=== PATIENT | female | born 1970 | race Caucasian/White ===

== ENCOUNTER 2021-07-03 08:56 | Emergency (ER) | payer OTHER, SELFPAY ==
[2021-07-03 09:03] VITALS: BP 120/88; PULSE 105; RESP 16; TEMP 36.8; O2SAT 99
--- NOTE | 2021-07-03 09:16 | ED.URI ---
HPI - URI/Sore Throat General Chief Complaint: Upper Respiratory Infection Stated Complaint: hard to swallow Time Seen by Provider: 07/03/21 09:16 Source: patient History of Present Illness HPI Narrative: PATIENT PRESENTS WITH THROAT PAIN. PATIENT PAIN IS MORE ON THE LEFT AND FEELS IF HER LYMPH NODES ARE SWOLLEN. NO TROUBLE SWALLOWING AND NO DROOLING. HX OF STREP THROAT. DENIES ANY OTHER COMPLAINTS OF . Related Data Home Medications Medication Instructions Recorded Confirmed sumatriptan succinate 50 mg PO DAILY PRN 07/03/21 07/03/21 Allergies Allergy/AdvReac Type Severity Reaction Status Date / Time egg Allergy Severe Anaphylaxis Unverified 07/03/21 09:18 Penicillins Allergy Severe Dyspnea / Unverified 07/03/21 09:18 SOB flu vaccination Allergy Severe Anaphylaxis Uncoded 07/03/21 09:18 MMR vaccination Allergy Severe Anaphylaxis Uncoded 07/03/21 09:18 Review of Systems Review of Systems: CONSTITUTIONAL: Denies fever, chills, or sweats. EYES: Denies visual changes, redness, or discharge. ENT: Denies rhinorrhea, congestion, sore throat, or otalgia. CARDIOVASCULAR: Denies chest pain, palpitations, or edema. RESPIRATORY: Denies cough or dyspnea. GASTROINTESTINAL: Denies abdominal pain, nausea, vomiting, or diarrhea. GENITOURINARY: Denies dysuria or hematuria. SKIN: Denies rash or itching. MUSCULOSKELETAL: Denies back pain, joint pain, or myalgia. NEUROLOGIC: Denies headache, numbness, or weakness. PSYCHIATRIC: Denies anxiety or depression. PMFSH Comments At time of signature, agree with nursing past medical, surgical, social and family history. There is no relevant family history pertinent to the presenting complaint Exam Narrative: GENERAL: Well-appearing, well-nourished, and in no acute distress. HEAD: Normocephalic, atraumatic. EYES: PERRLA and EOMI. ENT: Nares clear, no rhinorrhea or epistaxis. Mucous membranes moist. Mild pharyngeal erythremia no exudate no trismus no drooling can open mouth fully NECK: Supple. CHEST: Clear to auscultation. No respiratory distress. HEART: Regular rate and rhythm. No murmur heard. Normal peripheral pulses. ABDOMEN: Soft, nontender, nondistended, normal active bowel sounds. EXTREMITIES: Normal range of motion. No edema. SKIN: Warm, dry, no rash. NEURO: No focal deficits. Alert and oriented x3. Mindy Coma Scale Eye Opening: Spontaneous 4 [place]y Coma Scale Motor: Obeys Commands 6 [place] Coma Scale Verbal: Oriented 5 Mindy Coma Scale Total 15 Course Course Level of Care: Express Care Visit Vital Signs Vital signs: Vital Signs Temperature 36.8 C 07/03/21 09:03 Pulse Rate 105 H 07/03/21 09:03 Respiratory Rate 16 07/03/21 09:03 Blood Pressure 120/88 07/03/21 09:03 Pulse Oximetry 99 07/03/21 09:03 Temperature 36.8 C 07/03/21 09:03 Pulse Rate 105 H 07/03/21 09:03 Respiratory Rate 16 07/03/21 09:03 Blood Pressure 120/88 07/03/21 09:03 Pulse Oximetry 99 07/03/21 09:03 Critical dx considered and discussed with pt. Educated patient on red flag s/s and to go to ED if s/s occur. Discussed with pt when to return to Express Care or primary care provider. Pt gave verbal undertstanding, all questions were answered, and pt was agreeable to plan MDM - URI/Sore Throat Differential Diagnosis Differential diagnosis: Likely upper respiratory infection, croup, otitis media, sinusitis, viral infection, bronchitis, influenza and pharyngitis Lab Data Lab results narrative: Positive strep test Critical Care Time Critical Care Time Critical Care Time: No Discharge Plan Discharge Clinical Impression: Pharyngitis Patient Disposition: Home, Self-Care Condition: Stable Instructions: Antibiotic Form, Strep Throat (DC) Additional Instructions: Increase fluids especially juices and water [id number] cough and cold medicine of your choice for your symptoms Salt water gargles, throat lozenges or throat sprays as desired change
== END 2021-07-03 09:34 | disposition home or self-care (01) ==
PROVIDERS: Emergency Provider Nurse Practitioner Family; PCP Internal Medicine
DX: J02.9 Acute pharyngitis, unspecified (principal)
CPT/HCPCS: 87880; 99203; G0463

== ENCOUNTER 2023-03-03 19:13 | Emergency (ER) | payer OTHER, SELFPAY ==
[2023-03-03 19:24] VITALS: BP 124/78; PULSE 107; RESP 16; TEMP 36.5; O2SAT 99
--- NOTE | 2023-03-03 19:28 | ED.EAR ---
HPI - Ear Problem General Chief complaint: Ear Stated complaint: something in left ear Time Seen by Provider: 03/03/23 19:28 Source: patient, RN notes reviewed and old records reviewed Mode of arrival: ambulatory Limitations: no limitations History of Present Illness HPI Narrative: 52 year old female presents to [facility] care with complaints of bug being in her left ear, Patient reports there was a bug that she thinks went in her ear and then never came out,. Patient reports that she just can't hear out of her ear very well. Patient does have some fluid noted in her ears with dull light reflux. Patient reports that she has had problems with her ears in the past and has had a tube in her right ear before. patient has not taken any OTC medications for her symptoms. MD Complaint: ear pain and foreign body (felt like something in ear) Location: left ear Discharge from ear: Reports no Associated symptoms ear: other (feels like a bug in ear) Treatment prior to arrival: none Related Data Home Medications Medication Instructions Recorded Confirmed amitriptyline 25 mg tablet mg 03/03/23 apixaban 5 mg tablet (Eliquis) mg 03/03/23 lisinopril 10 mg tablet mg 03/03/23 Allergies Allergy/AdvReac Type Severity Reaction Status Date / Time egg Allergy Severe Anaphylaxis Unverified 07/03/21 09:18 Penicillins Allergy Severe Dyspnea / Unverified 07/03/21 09:18 SOB flu vaccination Allergy Severe Anaphylaxis Uncoded 07/03/21 09:18 MMR vaccination Allergy Severe Anaphylaxis Uncoded 07/03/21 09:18 Review of Systems Review of Systems: CONSTITUTIONAL: Denies malaise, chills, sweats, or fever. EYES: Denies visual changes, redness, or discharge. ENT: Reports rhinorrhea, congestion,no sinus pain, bilateral otalgia and no sore throat. CARDIOVASCULAR: Denies chest pain, palpitations, or edema. RESPIRATORY: Reports no cough.? Denies dyspnea. GASTROINTESTINAL: Denies abdominal pain, nausea, vomiting, diarrhea SKIN: Denies rash or itching. MUSCULOSKELETAL: Denies myalgia. NEUROLOGIC: Denies headache. All systems reviewed & are unremarkable except as noted in HPI and below PMFSH Past Medical History Medical History (Updated 03/05/23 @ 19:57 by Jennifer Pool NP) Gestational diabetes Hypertension Multiple environmental allergies Surgical History Surgical History (Updated 03/03/23 @ 19:48 by Jennifer Pool NP) History of placement of ear tubes Family History Family History (Updated 03/05/23 @ 19:58 by Jennifer Pool NP) Mother Asthma Father Lung cancer COPD (chronic obstructive pulmonary disease) Social History Social History (Updated 03/05/23 @ 20:00 by Jennifer Pool NP) Smoking packs per day: 0.25 Smoking cigarettes per day: 5.0 Years smoked: 16 Smoking pack-years: 4.00 Smoking status: Current every day smoker Alcohol intake: current Alcohol use details: social Substance use type: does not use Living arrangements: with family Gender identity (if verbalized by the patient): Female Comments At time of signature, agree with nursing past medical, surgical, social and family history. There is no relevant family history pertinent to the presenting complaint Exam Narrative: GENERAL: Well-appearing, well-nourished, and in no acute distress. HEAD: Normocephalic EYES: PERRLA, conjunctivae clear ENT: Nares clear, turbinates edematous and erythematous, clear discharge. Mucous membranes moist. TM pearly yeager with dull light reflex bilaterally; no foreign body observed,no tragal tenderness. Oropharynx erythematous without lesions. Tonsils not enlarged and without exudate, no drooling, no hoarseness, no trismus, uvula midline. NECK: Supple. No lymphadenopathy CHEST: Clear to auscultation, breath sounds equal. No wheezing, rhonchi, rales, or stridor. No respiratory distress, speaks in full sentences.SAO2 99% on room air HEART: Regular rate and rhythm. No murmur he
== END 2023-03-03 19:46 | disposition home or self-care (01) ==
PROVIDERS: Emergency Provider Registered Nurse; PCP Internal Medicine
DX: H69.93 Unspecified Eustachian tube disorder, bilateral (principal); F17.210 Nicotine dependence, cigarettes, uncomplicated; I10 Essential (primary) hypertension
CPT/HCPCS: 99213; G0463

== ENCOUNTER 2024-06-29 09:08 | Emergency (ER) | payer OTHER, SELFPAY ==
--- OUTSIDE RECORDS SUMMARY | 2024-06-29 09:11 | XMS_ITS | Clinical Summary ---
Author Organization [facility] Address [address] [place] [address] Care Team Providers Care Tuckpointer Cleaner Caulker Name Role Phone Enzo Bertrand MD Primary Care Provider [phone]- [phone] Allergies Active Allergy Reactions Criticality Noted Date Comments Egg Derived Anaphylaxis High 07/18/2016 Other Hives Medium 07/18/2016 oranges Penicillins Other (See comments) Low 07/18/2016 Chest pain Prochlorperazine Unknown Medications ondansetron (ZOFRAN) 4 mg tablet Take 1-2 tablets by mouth every 8 hours as needed for nausea or vomitting 20 tablet 7 Active ascorbic acid (VITAMIN C) 500 mg tablet,chewable Take 1 tablet by mouth 2 times daily until finished 60 tablet/chew tab 7 Active oxyCODONE-aceta minophen (PERCOCET) 5-325 mg per tabletIndicatio ns:Pain 0 7 Active sulfamethoxazol e-trimethoprim (BACTRIM,SEPTRA ) 800-160 mg per tablet 0 7 Active amitriptyline (ELAVIL) 25 mg tablet Take 25 mg by mouth. 6 Active triamcinolone acetonide 0.025 % lotion Apply topically. Active SUMAtriptan (IMITREX) 50 mg tabletIndicatio ns:Migraine Take 50 mg by mouth. 7 Active sulfamethoxazol e-trimethoprim (BACTRIM,SEPTRA ) 800-160 mg per tablet Take 1 tablet by mouth 2 (two) times a day. 14 tablet 7 Active HYDROcodone-nikolai taminophen (NORCO) 5-325 mg per tabletIndicatio ns:Pain Take 1 tablets by mouth every 8 hours as needed for pain 33 tablet 7 Active Active Problems Problem Noted Date Diagnosed Date Closed fracture of radius 01/13/2017 Surgical History Surgery Date Site/Laterality Comments ELBOW SURGERY HAND SURGERY WRIST FRACTURE SURGERY Medical History Medical History Date Comments Hypotension Asthma Migraines Peripheral neuropathy Family History Medical History Relation Name Comments Arthritis Other Cancer Other Relation Name Status Comments Other Social History Tobacco Use Types Packs/Day Years Used Date Smoking Tobacco: Every Day Smokeless Tobacco: Never Alcohol Use Standard Drinks/Week Comments Yes 0 (1 standard drink = 0.6 oz pur e alcohol) AUDIT-C Answer Date Recorded Q1: How often do you have a drink containing alc ohol? 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 Gender Identity Not on file Sexual Orientation Not on file Obstetrics History Last Filed Vital Signs Vital Sign Reading Time Taken Comments Blood Pressure 127/82 10/19/2020 9:04 AM CDT Pulse 90 10/19/2020 9:04 AM CDT Temperature - - Respiratory Rate - - Oxygen Saturation - - Inhaled Oxygen Concentration - - Weight 41 kg (90 lb 6.4 oz) 10/19/2020 9:04 AM C DT Height 152.4 cm (5') 10/19/2020 9:04 AM CDT Body Mass Index 17.66 10/19/2020 9:04 AM CDT Plan of Treatment Health Maintenance Due Date Last Done Comments Cervical Cancer Screening 1971 Colon Cancer Screening-Colonoscopy 1971 Depression Screening 1971 Hepatitis C Screening 1971 Pneumococcal vaccine <65 (1 of 2 - PCV) 1977 Hepatitis B Screening 1989 Regular Well Visit/Exam 18-64 1989 Breast Cancer Screening-Mammogram 08/07/2013 013 Zoster Vaccine (1 of 2) 2021 Influenza Vaccine (#1) 2024 DTaP/Tdap/Td Vaccine (2 - Td or Tdap) 04/23/202503/2015 Procedures Procedure Name Priority Date/Time Associated Diagnosis Comments DIGITAL MAMMOGRAPHY Routine 08/07/2012 1 :54 PM CDT from Last 3 Months or Most Recently Relevant to Health Maintenance Results * DIGITAL MAMMOGRAPHY (08/07/2012 1:54 PM CDT) Anatomical Region Laterality Modality Breast Mammography 08/07/2012 1:54 PM CDT Narrative 08/07/2012 3:19 PM CDT Mammogram Performed by: [facility] Acc#: [id number] DATE OF EXAM: Aug 07 2012 CLINICAL HISTORY: Routine screening. RESULT: Two views of each breast obtained, compared with 03/11/11. Moderately dense fibroglandular pattern bilaterally. No dominant mass is demonstrated. No suspicious clusters of microcalcifications are evident. Similar appearance to prior study. Digital technology was employed plus computer-aided detection software (R2) was utilized in interpretation of these images. This facility utilizes a reminder system to notify patients of yearly mammograms. IMPRESSION: 1. NO BREAST NEOPLASM IDENTIFIED. ANNUAL MAMMOGRAPHIC FOLLOW UP RECOMMENDED. BI-RADS CATEGORY 1 NEGATIVE EXAM. Interpreting Physician: JELLY LEYVA M.D. Read on: Aug 07 2012 1:56P Transcribed by: isa On: Aug 07 2012 2:59P Approved Electronically by: JELLY LEYVA M.D. on: Aug 07 2012 3:19P Ordering DR: DR ENZO BERTRAND Attending DR: DR ENZO BERTRAND Procedure Note Provider, MD Willis - 09/07/2016 Mammogram Performed by: [facility] Acc#: [id number] DATE OF EXAM: Aug 07 2012 CLINICAL HISTORY: Routine screening. RESULT: Two views of each breast obtained, compared with 03/11/11. Moderatelydense fibroglandular pattern bilaterally. No dominant mass isdemonstrated. No suspicious clusters of microcalcifications are evident.Similar appearance to prior study. Digital technology was employed pluscomputer-aided detection software (R2) was utilized in interpretation ofthese images. This facility utilizes a reminder system to notify patientsof yearly mammograms. IMPRESSION: 1. NO BREAST NEOPLASM IDENTIFIED. ANNUAL MAMMOGRAPHIC FOLLOW UPRECOMMENDED. BI- RADS CATEGORY 1 NEGATIVE EXAM. Interpreting Physician: JELLY LEYVA M.D. Read on: Aug 07 2012 1:56P Transcribed by: isa On: Aug 07 2012 2:59P Approved Electronically by: JELLY LEYVA M.D. on: Aug 07 2012 3:19P Ordering DR: DR ENZO BERTRAND Attending DR: DR ENZO BERTRAND Historical Provider MD [facility] Sonia l Result from Last 3 Months or Most Recently Relevant to Health Maintenance Insurance [facility] Member Subscriber Plan / Payer ( fective 2020-Present) Name:Autumn Sarkar Relation to Subscriber:Self Name:Autumn Sarkar Payer ID:[id number] (NAIC) Group ID:Not on file Type:MEDICAID RISK OTHER Address: [place] [id number] Care Teams Tuckpointer Cleaner Caulker Relationship Specialty Start Date End Date Enzo Bertrand MD PCP - General Internal Medicine 10/19/20
--- OUTSIDE RECORDS SUMMARY | 2024-06-29 09:11 | XMS_ITS | Referral Summary ---
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 Gender Identity Not on file Sexual Orientation Not on file Last Filed Vital Signs Vital Sign Reading [...] 10/19/2020 9:04 AM CDT Plan of Treatment Not on file Procedures Procedure Name Priority Date/Time Associated Diagnosis Comments DIGITAL MAMMOGRAPHY Routine 08/07/2012 1 :54 PM CDT from Last 3 Months or Most Recently Relevant to Health Maintenance Results * DIGITAL MAMMOGRAPHY (08/07/2012 1:54 PM CDT) Anatomical Region Laterality Modality Breast Mammography 08/07/2012 1:54 PM CDT Narrative 08/07/2012 3:19 PM CDT Mammogram Performed by: [facility]IR[facility] Acc#: [id number] DATE OF EXAM: Aug 07 2012 CLINICAL [...] Mammogram Performed by: Screening Mamm [facility] Acc#: [id number] DATE OF EXAM: Aug 07 2012 CLINICAL [...] ENZO BERTRAND Attending DR: DR ENZO BERTRAND us Historical Provider MD [facility] Sonia l Result from Last 3 Months or Most Recently Relevant to Health Maintenance Insurance [facility] Care Teams Door Assembler Relationship Specialty Start Date End Date Enzo Bertrand MD PCP - General Internal Medicine 10/19/20
--- OUTSIDE RECORDS SUMMARY | 2024-06-29 09:11 | XMS_ITS | Referral Summary ---
Author Organization [facility] Address [address] [place] [address] Care Team Providers Care Inspector Tubes Name Role Phone Edwina Bertrand MD Primary Care Provider Unavailabl e Source Comments [facility],non-owned Affiliates and Associated Physician Practices is amultiple site organization consisting of ambulatory clinics and hospital sitesin [place], [place], [place] and [place]. This disclosure is being madepursuant to the Care Everywhere program and may not contain all information available regarding this patient. Last updated 18.[facility] Encounters Date Type Department Care Team Description 04/24/2024 Orders Only [facility] - Surgery [address] [place] [address], [address] [id number] Adelina Mathias, AIRCRAFT PNEUDRAULIC SYSTEMS MECHANIC-FAMILY SUPPORT COORDINATOR from Last 3 Months Allergies Active Allergy Reactions Criticality Noted Date Comments Amoxicillin Urticaria Medium 04/18/2022 Albumin Anaphylaxis High 04/07/2022 Medications * Be aware that medications may not be up to date on this document. Alwaysverify current medications with the patient. 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 Never 04/04/2022 Q2: How many drinks containi ng alcohol do you have on a typical day when you are drinking? Patient does not drink Q3: How often do you have si x or more drinks on one occasion? Never 04/04/2022 Hunger Vital Sign Answer Date Recorded Within the past 12 months, y ou worried that your food would run out before you got the money to buy more. Never true 04/19/20 Within the past 12 months, t he food you bought just didn't last and you didn't have money to get more. Never true 04/19/2022 Sex and Gender Information Value Date Recorded Sex Assigned at Not on file Gender Identity Not on file Sexual Orientation Not on file Last Filed Vital Signs Vital Sign Reading Time Taken Comments Blood Pressure 109/73 04/19/2022 8:30 AM CORPORATE COMMUNICATIONS INTERN Pulse 86 04/19/2022 8:30 AM CORPORATE COMMUNICATIONS INTERN Temperature 36.9 C (98.4 F) 04/19/2022 8:30 AM CORPORATE COMMUNICATIONS INTERN Respiratory Rate 19 04/19/2022 8:30 AM CORPORATE COMMUNICATIONS INTERN Oxygen Saturation 97% 04/19/2022 8:30 AM CORPORATE COMMUNICATIONS INTERN Inhaled Oxygen Concentration - - Weight 39.9 kg (88 lb) 07/19/2023 1:46 PM CORPORATE COMMUNICATIONS INTERN Height 152.4 cm (5') 07/19/2023 1:46 PM CORPORATE COMMUNICATIONS INTERN Body Mass Index 17.19 07/19/2023 1:46 PM CORPORATE COMMUNICATIONS INTERN Plan of Treatment Upcoming Encounters Date Type Department Care Team (Late st Contact Info) Description 07/24/2024 1:00 PM CDT Appointment [facility] Services [address] [place] [address], [address] [place] [address] 07/24/2024 1:30 PM CDT Office Visit [facility] - Surgery [address] [place] [address], [address] [place] [id number] [place] [id number] [address] [id number] Medical Devices Implanted Type Area Toddler Teacher Device Identifier Shelf Expiration Date Model / Serial / Lot Stent Eprsth Sprfc Fem Art Ilium 5cm 7mm - [id number] Implanted:Qty: 1 on 04/18/2022 by Donal Patel MD at [facility] 11/30/2024 [id number] / [id number] / Advance Directives * Full Code (Latest Code Status on File) Date Activated Date Inactivated Comments 04/18/2022 3:54 PM 04/19/2022 5:47 PM * Full Code Date Activated Date Inactivated Comments 04/18/2022 3:37 PM 04/18/2022 3:54 PM * Full Code Date Activated Date Inactivated Comments 04/05/2022 1:35 AM 04/07/2022 2:52 PM Care Teams Inspector Tubes Relationship Specialty Start Date End Date Edwina Bertrand MD [address] [place] [id number] PCP - General Obstetrics and Gynecology 04/04/22
--- OUTSIDE RECORDS SUMMARY | 2024-06-29 09:11 | XMS_ITS | Clinical Summary ---
Author Organization [facility] Address [address] [place] [address] Phone Care Team Providers Care Feltmaker And Weigher Name Role Phone Wil Bertrand MD Primary Care Provider Allergies Active Allergy Reactions Criticality Noted Date Comments Albumin Human Anaphylaxis High 04/07/2022 Egg-Derived Products Anaphylaxis 07/18/2016 Other Hives 07/18/2016 oranges Penicillins Other (see Comments) 07/18/2016 Chest pain Prochlorperazine Unknown 07/16/2020 Medications fluticasone (FLONASE) 50 MCG/ACT Suspension 1 Mead by Nasal route 2 times daily. Use in each nostril as directed. 16 g 3 09/21/2021 Active Eliquis 5 MG Tablet Take 5 mg by mouth 2 times daily. 12/19/2022 Active triamcinolone (KENALOG) 0.025 % Cream Apply to rash areas bid prn for flare up 80 g 01/25/2023 Active famotidine (PEPCID) 20 MG Tablet Take 20 mg by mouth daily. Active SUMAtriptan (IMITREX) 50 MG Tablet Take 1 Tablet by mouth once as needed for Migraine for up to 27 doses. Use as directed. May repeat dose in 2 hours if headache recurs. 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 Continue follow-up with vascular surgeon Cervical spinal stenosis 12/22/2021 Tobacco use 03/05/2020 Migraine without aura and wi thout status migrainosus, not intractable 03/05/2020 Carpal tunnel syndrome, right 07/19/2016 Encounters Date Type Department Care Team Description 04/22/2024 Refill [facility] - Internal Medicine - [place] [address] [place] [address] Wil Bertrand MD Medication Refill from Last 3 Months Immunizations Immunization Administration Dates Next Due TDAP Vaccine 04/23/2015 Family History Medical History Relation Name Comments Cancer Father Asthma Mother No Known Problems Sister 1 Cancer Sister 2 Relation Name Status Comments Father Mother Alive Sister 1 Alive Sister 2 Social History Tobacco Use Types Packs/Day Years Used Date Smoking Tobacco: Every Day Cigarettes 0.5 18.9 Started: 07/18/2005 Passive Smoke Exposure: Current Smokeless Tobacco: Never Tobacco Cessation:Ready to Q uit: No; Counseling Given: No Alcohol Use Standard Drinks/Week Comments No 0 (1 standard drink = 0.6 oz pur e alcohol) [facility] Utilities Answer Date Recorded In the past 12 months has th e [employer], gas, oil, or water [employer] threatened to shut off services in your home? No 07/31/2023 Social Connection and Isolat ion Panel [NHANES] Answer Date Recorded In a typical week, how many times do you talk on the phone with family, friends, or neighbors? More than three times a week 07/31/2023 How often do you get togethe r with friends or relatives? More than three times a week 07/31/2023 How often do you attend [facility] or yazidism services? Never 07/31/2023 Do you belong to any clubs o r organizations such as sabianism groups, unions, fraternal or athletic groups, or school groups? No 07/31/2023 How often do you attend meet ings of the clubs or organizations you belong to? Never 07/31/2023 Are you , , di vorced, , never , or living with a partner? Never 07/31/2023 AUDIT-C Answer Date Recorded Q1: How often do you have a drink containing alcohol? Never 07/31/2023 Q2: How many drinks containi ng alcohol do you have on a typical day when you are drinking? Patient does not drink Q3: How often do you have si x or more drinks on one occasion? Never 07/31/2023 Overall Financial Resource Strain (CARDIA) Answe r Date Recorded How hard is it for you to pa y for the very basics like food, housing, medical care, and heating? Not hard at all 07/31/2023 PHQ-2 Answer Date Recorded Total Score - Questions 1-9 0 07/12 [facility] - Occupational Stress Questionnaire Answer Date Recorded Do you feel stress - tense, restless, nervous, or anxious, or unable to sleep at night because your mind is troubled all the time - these days? Not at all 07/31/2023 Exercise Vital Sign Answer Date Recorde d On average, how many days pe r week do you engage in moderate to strenuous exercise (like a brisk walk)? 0 days 07/31/2023 On average, how many minutes do you engage in exercise at this level? 0 min 07/31/2023 Hunger Vital Sign Answer Date Recorded Within the past 12 months, y ou worried that your food would run out before you got the money to buy more. Never true 07/31/19 24 Within the past 12 months, t he food you bought just didn't last and you didn't have money to get more. Never true 07/31/2023 PRAPARE - Transportation Answer Date Re corded In the past 12 months, has l ack of transportation kept you from medical appointments or from getting medications? No 07/12 In the past 12 months, has l ack of transportation kept you from meetings, work, or from getting things needed for daily living? No 07/31/2023 Housing Stability Vital Sign Answer Wes e Recorded In the last 12 months, was t here a time when you were not able to pay the mortgage or rent on time? No 07/31/2023 In the last 12 months, how many places have you lived? 3 07/31/2023 In the last 12 months, was t here a time when you did not have a steady place to sleep or slept in a retirement (including now)? No 07/31/2023 Sexually Active Control Partners Comments Yes Comments No Sex and Gender Information Value Date Recorded Sex Assigned at Not on file Legal Sex Female 11:52 PM CDT Gender Identity Not on file Sexual Orientation Not on file Last Filed Vital Signs Vital Sign Reading Time Taken Comments Blood Pressure 130/74 07/31/2023 9:23 AM CDT Pulse 94 07/31/2023 9:23 AM CDT Temperature 37.1 C (98.7 F) 07/31/2023 9:23 AM CDT Respiratory Rate 16 09/08/2022 1:16 PM CDT Oxygen Saturation 95% 07/31/2023 9:23 AM CDT Inhaled Oxygen Concentration - - Weight 39.5 kg (87 lb) 07/31/2023 9:23 AM CDT Height 152.4 cm (5') 07/31/2023 9:23 AM CDT Body Mass Index 16.99 07/31/2023 9:23 AM CDT Plan of Treatment Health Maintenance Due Date Last Done Comments Hepatitis C Virus (HCV) Screening 1971 Hepatitis B Immunization (1 of 3 - 19+ 3-dose series) 1990 Pneumococcal Immunization (5 0+ years) (1 of 2 - PCV) 1990 Cologuard 2021 Immunochemical Fecal Occult Blood 2021 SARS-COV-2 Immunization ( - season) 2024 Mammogram 12/27/2024 12/27/2022, 08/02/2021 Td Immunization Every 10 Yea rs (Adults With 1 Tdap) 04/23/2025 04/23/2015 Pap Smear 09/08/2025 09/08/2022 Cervical Cancer Screening (CCS) 09/09/2027 HPV/Cotest 09/09/2027 09/08/2022 Colonoscopy 10/06/2031 10/05/2021 Colorectal Cancer Screening 10/06/2031 Respiratory Syncytial Virus (RSV) Immunization (Adult) (1 - 1-dose 75+ series) 2046 10/05/2021 DTaP/Tdap/Td Immunization Discontinued 04/23/2015 Discussion re Starting/Frequency of Mammograms Discontinued 12/27/2022, 08/02/2021 Influenza Immunization Discontinued Meningococcal Immunization (ACWY) Aged Out No longer eligible based on patient's age to complete this topic Rotavirus Immunization Aged Out No lo nger eligible based on patient's age to complete this topic Zoster Immunization Discontinued Goals Goal Patient Goal Type Associated Problems Recent Progress Patient-Stated? Author Chronic Disease Management Chronic Disease Management Сергей Herrera, RN Note: To effectively check in with [facility] Remote Patient Monitoring Hypertension program via text on Sunday and at 08:30 am. Procedures Procedure Name Priority Date/Time Associated Diagnosis Comments SARAH SCREENING BILATERAL DIGITAL W CAD W SUDHA Routine 12/27/2022 11:22 AM CDT Visit for screening mammogram HUMAN PAPILLOMA VIRUS (HPV) Routine 09/08/2022 1:54 PM CDT Screening for cervical cancer PATHOLOGY CYTOLOGY CARD ROOM MANAGER Routine 09/08/2022 1:54 PM CDT Screening for cervical cancer from Last 3 Months or Most Recently Relevant to Health Maintenance Results * SARAH SCREENING BILATERAL DIGITAL W CAD W SUDHA (12/27/2022 11:22 AM CDT) Anatomical Region Laterality Modality breast Bilateral Mammography 12/27/2022 11:2 4 AM CDT Narrative 12/27/2022 3:40 PM CDT - SARAH SCREENING BILATERAL DIGITAL W CAD W SUDHA BILATERAL DIGITAL SCREENING MAMMOGRAM 3D/2D WITH CAD WITH MEDIOLATERAL OBLIQUE CRANIOCAUDAL: 12/27/2022 The study was acquired using digital technology and interpreted from soft copy. Current study was also evaluated with ICAD version 7.2. 2D digital mammographic views, as well as 3D digital tomosynthesis were performed in the CC and MLO projections. CLINICAL: Routine screening. Patient has no complaints. No personal history of cancer. No family history of breast cancer. COMPARISONS: Comparison is made to exam dated: 08/02/[address] [facility]. BREAST TISSUE:The tissue of both breasts is heterogeneously dense. This may lower the sensitivity of mammography. FINDINGS: There are benign calcifications in the left breast. No significant masses, calcifications, or other findings are seen in either breast. There has been no significant interval change. IMPRESSION: BI-RAD 2 BENIGN There is no mammographic evidence of malignancy. A 1 year screening mammogram is recommended. A letter will be sent to the patient with these results. The patient will be entered into a reminder system with a target due date of 1 year for her next screening exam. Electronically signed by: Cheryl galindo/chula:12/27/2022 14:51:23 Watch Case Polisher(s): RT Corky(R)(M), [facility] letter sent: Normal Exam Reading location: [facility] BI-RADS: 2 Benign Procedure Note Cheryl Schroeder MD - 12/27/2022 - SARAH SCREENING BILATERAL DIGITAL W CAD W SUDHA BILATERAL DIGITAL SCREENING MAMMOGRAM 3D/2D WITH CAD WITH MEDIOLATERAL OBLIQUE CRANIOCAUDAL: 12/27/2022 The study was acquired using digital technology and interpreted from soft copy. Current study was also evaluated with ICAD version 7.2. 2D digital mammographic views, as well as 3D digital tomosynthesis were performed in the CC and MLO projections. CLINICAL: Routine screening. Patient has no complaints. No personal history of cancer. No family history of breast cancer. COMPARISONS: Comparison is made to exam dated: 08/02/[address] [facility]. BREAST TISSUE:The tissue of both breasts is heterogeneously dense. This may lower the sensitivity of mammography. FINDINGS: There are benign calcifications in the left breast. No significant masses, calcifications, or other findings are seen in either breast. There has been no significant interval change. IMPRESSION: BI-RAD 2 BENIGN There is no mammographic evidence of malignancy. A 1 year screening mammogram is recommended. A letter will be sent to the patient with these results. The patient will be entered into a reminder system with a target due date of 1 year for her next screening exam. Electronically signed by: Cheryl galindo/chula:12/27/2022 14:51:23 Watch Case Polisher(s): RT Corky(R)(M), [facility] letter sent: Normal Exam Reading location: [facility] BI-RADS: 2 Benign us Wil Bertrand MD IMG MAMMO ORDERABLES Final Result * PATHOLOGY CYTOLOGY CARD ROOM MANAGER (09/08/2022 1:54 PM CDT) SPECIMEN ADEQUACY Satisfactory for evaluation. Endocervical/transf ormation zone component is present. 09/14/2022 10:06 AM CDT [facility] GENERAL CATEGORY NEGATIVE FOR INTRAEPITHELIAL LESIONS OR MALIGNANCY. 09/14/2022 10:06 AM CDT [facility] DESCRIPTIVE DIAGNOSIS Reactive cellular changes are noted. 09/14/2022 10:06 AM CDT [facility] Automated Examination Analysis of this sample has been assisted by an automated imaging and review system ([employer] System, [employer], [place], [place]). This case is further evaluated and finalized by a full decator operator and/or pathologist. 09/14/2022 10:06 AM CDT [facility] Disclaimer The PAP smear is a screening test designed to detect cancerous or precancerous cells of the uterine cervix. It is one of the best means available for detection of cervical cancer but still carries an inherent false-negative rate. The consequences of a false-negative PAP result can be minimized by adhering to current screening guidelines. The following are general guidelines recommended by the ACS, ASCP, ASCCP, and ACOG: PAP testing is recommended every three years for women 21-29, Co-Testing , a PAP test in conjunction with an HPV (Human Papillomavirus) test for women ages 30-65, and no PAP or HPV testing for women under the age of 21 or older than 65 unless clinically indicated. 09/14/2022 10:06 AM CDT [facility] Other (Cervix/Endocerv ix) Non-Phlebotomy Collection / Unknown 09/08/2022 1:54 PM CDT 09/08/2022 1:54 PM CDT us Missy Quintero INSURANCE AND BENEFITS CLERK, STAMPING PRESS OPERATOR PATHOLOGY/CYTOLOGY ORDER JACEY Final Result [facility] [address] [place] [address], * HUMAN PAPILLOMA VIRUS (HPV) (09/08/2022 1:54 PM CDT) HPV OTHER HIGH RISK TYPES, PCR NEGATIVE NEGATIVE 09/11/2022 1:02 PM CDT [facility] Comment: The following Other High Risk types were not detected: 31, 33, 35, 39, 45, 51, 52, 56, 58, 59, 66, and 68. A negative high-risk HPV result does not exclude the possibility of future cytologic HSIL or underlying CIN2-3 or cancer. The presence of PCR inhibitors may cause false negative or invalid results. If concentrations of whole blood in the sample exceed 1.5% (dark red or brown coloration) in PreservCyt solution, there is a likelihood of obtaining a false-negative result. HPV TYPE 16 NEGATIVE NEGATIVE 09/11/2022 1:02 PM CDT [facility] Comment: A negative high-risk HPV result does not exclude the possibility of future cytologic HSIL or underlying CIN2-3 or cancer. The presence of PCR inhibitors may cause false negative or invalid results. If concentrations of whole blood in the sample exceed 1.5% (dark red or brown coloration) in PreservCyt solution, there is a likelihood of obtaining a false-negative result. HPV TYPE 18 NEGATIVE NEGATIVE 09/11/2022 1:02 PM CDT [facility] Comment: A negative high-risk HPV result does not exclude the possibility of future cytologic HSIL or underlying CIN2-3 or cancer. The presence of PCR inhibitors may cause false negative or invalid results. If concentrations of whole blood in the sample exceed 1.5% (dark red or brown coloration) in PreservCyt solution, there is a likelihood of obtaining a false-negative result. HPV ORDER BE USED FOR SCREENING OR DIAGNOSTIC SCREENING 09/11/2022 1:02 PM CDT [facility] Other Non-Phlebotomy Collection / Unknown 09/08/2022 1:54 PM CDT 09/08/2022 1:54 PM CDT Narrative [facility] - 09/11/2022 1:02 PM CDT Performed by Real-Time Polymerase Chain Reaction (PCR) on the [employer] 4800. This assay has been validated for use with post-aliquot samples from the [employer] processor. us Missy Quintero INSURANCE AND BENEFITS CLERK, STAMPING PRESS OPERATOR LAB SEND OUTS Final Re sult [facility] [address] [place] [address], [facility] [address] [place] [address] from Last 3 Months or Most Recently Relevant to Health Maintenance Insurance MEDICAID [place] Advance Directives * Full Code (Latest Code Status on File) Date Activated Date Inactivated Comments 07/19/2016 9:20 AM 07/19/2016 6:06 PM CPR-Full Treat ment: FULL ARREST: Attempt Resuscitation/CPR wit intubation and mechanical ventilation. PRE-ARREST: Use entire range of life support measures to stabilize the patient. Care Teams Feltmaker And Weigher Relationship Specialty Start Date End Date Wil Bertrand MD [address] [place] [address] PCP - General Internal Medicine 07/17/16
--- OUTSIDE RECORDS SUMMARY | 2024-06-29 09:11 | XMS_ITS | Encounter Summary ---
Author Organization [facility] Address [address] [place] [address] Phone Care Team Providers Care Front Desk Lead Name Role Phone Wil Bertrand MD Primary Care Provider [phone] Reason for Visit * Reason Comments Medication Refill Encounter Details Date Type Department Care Team (Late st Contact Info) Description 08/20/2023 Refill [facility] - Internal Medicine - [place] [address] [place] [id number] Wil Bertrand MD [address] [facility] [address] Medication Refill Social History Tobacco Use Types Packs/Day Years Used Date Smoking Tobacco: Every Day Cigarettes 0.5 18.9 Started: 07/18/2005 Passive Smoke Exposure: Current Smokeless Tobacco: Never Alcohol Use Standard Drinks/Week Comments No 0 (1 standard drink = 0.6 oz pur e alcohol) [facility] Utilities Answer Date Recorded In the past 12 months has [employer], gas, oil, or water company threatened to shut off services in your [...] week 07/31/2023 How often do you attend [facility] or congregation services? Never 07/31/2023 Do you belong to any clubs o r organizations such as rastafari groups, unions, fraternal or athletic groups, or [...] Total Score - Questions 1-9 0 07/12 [facility]at [facility] - Occupational Stress [...] place to sleep or slept in a longterm (including now)? No 07/31/2023 Sexually Active Control Partners Comments Yes Comments No Sex and Gender Information Value Date Recorded Sex Assigned at Not on file Legal Sex Female 11:52 PM CDT Gender Identity Not on file Sexual Orientation Not on file documented as of this encounter Miscellaneous Notes * Telephone Encounter - Chela Powell RN - 08/20/2023 8:28 AM CDT Medication(s) refilled and signed per [facility] Chronic Medication Refill Standing Order for Pediatricand Adult Patients. Requested Prescriptions Pending Prescriptions Disp Refills lisinopril (PRINIVIL, ZESTRIL) 10 MG Tablet [Pharmacy Med Name: LISINOPRIL 10MG TABLETS] 30 Tablet 3 Sig: TAKE 1 TABLET BY MOUTH DAILY CHRISTINA Inhibitors Protocol Passed - 08/20/2023 5:48 AM Passed - Serum potassium on record in past 12 months POTASSIUM Date Value Ref Range Status 07/18/2023 4.1 3.5 - 5.1 mmol/L Final Passed - Blood pressure on record in past 12 months Clinician-entered: BP Readings from Last 3 Encounters: 07/31/23 130/74 04/30/23 134/80 01/25/23 110/68 Patient-entered: No data recorded Passed - No positive test in the past 12 months or most recent test was negative Passed - Visit with relevant provider in past 12 months or upcoming 90 days Recent Visits Date Type Provider Dept 07/31/23 Office [facility] [place] 04/30/23 Office Visit Wil Bertrand MD [facility] [place] 01/25/23 [facility] [place] [facility]22 Office Visit Wil Bertrand MD [facility] Showing recent visits within past 365 days and meeting all other requirements Future Appointments Date Type Provider Dept 11/01/23 Appointment Wil Bertrand MD [facility] [place] Showing future appointments within next 90 days and meeting all other requirements Passed - No active on record Passed - GFR on record in past 12 months GFR, EST. NONAFRICAN Date Value Ref Range Status 07/18/2023 >60 >=60 Final documented in this encounter Plan of Treatment Not on file documented as of this encounter Goals Goal Patient Goal Type Associated Problems Recent Progress Patient-Stated? Author Chronic Disease Management Chronic Disease Management Сергей Herrera, RN Note: To effectively check in with [facility] Remote Patient Monitoring Hypertension program via text on Sunday and at 08:30 am. documented as of this encounter Visit Diagnoses Not on filedocumented in this encounter Additional Health Concerns Assessment Noted Time PHQ-9 Depression Total Score: 0 07/31/19 24 9:27 AM CDT documented as of this encounter Care Teams Front Desk Lead Relationship Specialty Start Date End Date Wil Bertrand MD [address] [place] [address] PCP - General Internal Medicine 07/17/16 documented as of this encounter
--- OUTSIDE RECORDS SUMMARY | 2024-06-29 09:11 | XMS_ITS | Clinical Summary ---
Author Organization [facility] [employer] Address [address] [place] [address] Care Team Providers Care Media Analytics Manager Name Role Phone Edwina Bertrand MD Primary Care Provider Unavailabl e Source Comments [facility] [employer],non-owned Affiliates and Associated Physician Practices is amultiple site organization consisting of ambulatory clinics and hospital sitesin [place], [place], [place] and [place]. This disclosure is being madepursuant to the Care Everywhere program and may not contain all information available regarding this patient. Last updated 18.[facility] [employer] Allergies Active Allergy Reactions Criticality Noted Date [...] Pseudoaneurysm following procedure 04/18/2022 Renal infarct 04/05/2022 Encounters Date Type Department Care Team Description 04/24/2024 Orders Only [facility] - Surgery [address] [place] [address], [address] [place] [id number] Adelina Mathias, PUTTYING AND CALKING SUPERVISOR-SAIL REPAIRER from Last 3 Months Family History Medical History Relation Name Comments None Known Father None Known Mother Relation Name Status Comments Father Mother Social History Tobacco Use Types Packs/Day Years [...] Comments Blood Pressure 109/73 04/19/2022 8:30 AM GROUP HOME WORKER Pulse 86 04/19/2022 8:30 AM GROUP HOME WORKER Temperature 36.9 C (98.4 F) 04/19/2022 8:30 AM GROUP HOME WORKER Respiratory Rate 19 04/19/2022 8:30 AM GROUP HOME WORKER Oxygen Saturation 97% 04/19/2022 8:30 AM GROUP HOME WORKER Inhaled Oxygen Concentration - - Weight 39.9 kg (88 lb) 07/19/2023 1:46 PM GROUP HOME WORKER Height 152.4 cm (5') 07/19/2023 1:46 PM GROUP HOME WORKER Body Mass Index 17.19 07/19/2023 1:46 PM GROUP HOME WORKER Plan of Treatment Upcoming Encounters Date Type Department Care Team (Late st Contact Info) Description 07/24/2024 1:00 PM CDT Appointment [facility] [address] [place] [address], [address] [place] [address] 07/24/2024 1:30 PM CDT Office Visit [facility] - Surgery [address] [place] [address], [address] [place] [address] [place] [address] [address] [place] [address] Health Maintenance Due Date Last Done Comments COLOGUARD (AGES 45-75) - COL ON CA SCREENING 1971 COLON MONITORING 1971 COLONOSCOPY - COLON CA SCREENING 1971 CT COLONOGRAPHY - COLON CA SCREENING 1971 Colorectal Cancer Screening 1971 FIT - COLON CA SCREENING 1971 FLEX SIG - COLON CA SCREENING 1971 LIPID TESTING 1971 PAP SMEAR 1971 HIV SCREENING 1986 HEPATITIS C SCREENING 03/14/1989 DTAP/TDAP/TD VACCINES (1 - Tdap) 1990 HEPATITIS B VACCINE (1 of 3 - 19+ 3-dose series) 1990 PNEUMOCOCCAL VACCINE 50+ (1 of 1 - PCV) 2021 ZOSTER VACCINE (1 of 2) 2021 COVID-19 VACCINE (1 - 2023-2 5 season) 2024 INFLUENZA VACCINE (#1) 2024 DEPRESSION SCREENING 05/14/2024 MAMMOGRAM 12/27/2024 12/27/2022, 08/02/2021, 08/07/2012 HIB VACCINE Aged Out No longer eligi ble based on patient's age to complete this topic HPV VACCINE Aged Out No longer eligi ble based on patient's age to complete this topic MENINGOCOCCAL (Group B) VACCINE Aged Out No longer eligible b ased on patient's age to complete this topic MENINGOCOCCAL VACCINE Aged Out No amanda artis eligible based on patient's age to complete this topic Medical Devices Implanted Type Area On Call Pharmacy Technician Device Identifier Shelf Expiration Date Model / Serial / Lot Stent Eprsth Sprfc Fem Art Ilium 5cm 7mm - [id number] Implanted:Qty: 1 on 04/18/2022 by Donal Patel MD at [facility] [employer] [facility] 11/30/2024 [id number] / [id number] / Advance Directives * Full Code (Latest Code Status on File) Date Activated Date Inactivated Comments 04/18/2022 3:54 PM 04/19/2022 5:47 PM * Full Code Date Activated Date Inactivated Comments 04/18/2022 3:37 PM 04/18/2022 3:54 PM * Full Code Date Activated Date Inactivated Comments 04/05/2022 1:35 AM 04/07/2022 2:52 PM Care Teams Media Analytics Manager Relationship Specialty Start Date End Date Edwina Bertrand MD [address] [place] [id number] PCP - General Obstetrics and Gynecology 04/04/22
--- OUTSIDE RECORDS SUMMARY | 2024-06-29 09:11 | XMS_ITS | Patient Health Summary ---
Author Organization [facility] Address [address] [place] [address] Care Team Providers Care Note Taker Name Role Phone Edwina Bertrand MD Primary Care Provider Unavailabl e Note from [facility],non-owned Affiliates and Associated Physician Practices is amultiple site organization consisting of ambulatory clinics and hospital sitesin [place], [place], [place] and [place]. This disclosure is being madepursuant to the Care Everywhere program and may not contain all information available regarding this patient. Last updated 18.[facility] Allergies * Amoxicillin(Urticaria) -Medium Criticality * Albumin(Anaphylaxis) -High Criticality Medications * Be aware that medications may not be up to date on this document. Alwaysverify current medications with the patient. * SUMAtriptan (Imitrex) 50 MG tablet Take 1 (one) tablet by mouth once as needed for Migraine (PRN once a day as needed for migranes) Maximum daily dose: 200mg/24 hours * amitriptyline (Elavil) 25 MG tablet Take 1 (one) tablet by mouth at bedtime * rivaroxaban (Xarelto) 20 MG tablet(Started 04/24/2024) Take 1 (one) tablet by mouth daily with food 2 refills by 04/24/2025 Active Problems Problem Noted Date Diagnosed Date [...] money to buy more. Never true 04/19/20 22 Within the past 12 months, t he food you bought just didn't last and you didn't have money to get more. Never true 04/19/2022 Sex and Gender Information Value Date Recorded Sex Assigned at Not on file Gender Identity Not on file Sexual Orientation Not on file Last Filed Vital Signs Vital Sign Reading Time Taken Comments Blood Pressure 109/73 04/19/2022 8:30 AM INSURANCE APPLICATION INVESTIGATOR Pulse 86 04/19/2022 8:30 AM INSURANCE APPLICATION INVESTIGATOR Temperature 36.9 C (98.4 F) 04/19/2022 8:30 AM INSURANCE APPLICATION INVESTIGATOR Respiratory Rate 19 04/19/2022 8:30 AM INSURANCE APPLICATION INVESTIGATOR Oxygen Saturation 97% 04/19/2022 8:30 AM INSURANCE APPLICATION INVESTIGATOR Inhaled Oxygen Concentration - - Weight 39.9 kg (88 lb) 07/19/2023 1:46 PM INSURANCE APPLICATION INVESTIGATOR Height 152.4 cm (5') 07/19/2023 1:46 PM INSURANCE APPLICATION INVESTIGATOR Body Mass Index 17.19 07/19/2023 1:46 PM INSURANCE APPLICATION INVESTIGATOR Medical Devices Implanted Type Area Wing Coverer Device Identifier Shelf Expiration Date Model / Serial / Lot Stent Eprsth Sprfc Fem Art Ilium 5cm 7mm - [id number] Implanted:Qty: 1 on 04/18/2022 by Donal Patel MD at [facility] [employer] 11/30/2024 [id number] / [id number] / Procedures * VAS BILAT ARTERIAL DUPLEX LE(Performed 07/19/2023) Performed for PAD (peripheral artery disease) ([facility]) * VAS ARTERIAL ANKLE ARM INDEX(Performed 07/19/2023) Performed for PAD (peripheral artery disease) ([facility]) * VAS RIGHT ARTERIAL DUPLEX LE(Performed 05/01/2022) Performed for PVD (peripheral vascular disease) (HCC) * RENAL FUNCTION PANEL(Performed 04/19/2022) * CBC W AUTO DIFFERENTIAL(Performed 04/19/2022) * HYBRID IMAGING(Performed 04/18/2022) * ENDOTRACHEAL TUBE NOTE(Performed 04/18/2022) * INCISION AND DRAINAGE LEG/KNEE(Performed 04/18/2022) * ANGIOGRAM/ARTERIOGRAM(Performed 04/18/2022) * TYPE + SCREEN PANEL(Performed 04/18/2022) * HCG BLOOD QUALITATIVE(Performed 04/18/2022) * PT-INR(Performed 04/18/2022) * CBC W AUTO DIFFERENTIAL(Performed 04/18/2022) * COMPREHENSIVE METABOLIC PANEL(Performed 04/18/2022) * CARDIAC EKG ORDER(Performed 04/13/2022) * BASIC METABOLIC PANEL (CALCIUM TOTAL)(Performed 04/07/2022) Performed for Renal infarct (HCC) * CBC W AUTO DIFFERENTIAL(Performed 04/07/2022) * PTT(Performed 04/06/2022) Performed for Renal infarct (HCC) * BASIC METABOLIC PANEL (CALCIUM TOTAL)(Performed 04/06/2022) Performed for Renal infarct (HCC) * PT-INR(Performed 04/06/2022) * CBC W AUTO DIFFERENTIAL(Performed 04/06/2022) * PTT(Performed 04/05/2022) Performed for Renal infarct (HCC) * HYBRID IMAGING(Performed 04/05/2022) Performed for Renal infarct (HCC) * ANGIOGRAM/ARTERIOGRAM(Performed 04/05/2022) * PTT(Performed 04/05/2022) Performed for Renal infarct (HCC) * PTT(Performed 04/05/2022) Performed for Renal infarct (HCC) * BASIC METABOLIC PANEL (CALCIUM TOTAL)(Performed 04/05/2022) Performed for Renal infarct (HCC) * CT ABDOMEN PELVIS WO CONTRAST(Performed 04/05/2022) Performed for Renal infarct (HCC) * PTT(Performed 04/05/2022) * PT-INR(Performed 04/05/2022) * CBC W AUTO DIFFERENTIAL(Performed 04/05/2022) * TROPONIN I(Performed 04/04/2022) * URINE MICROSCOPIC ONLY(Performed 04/04/2022) * URINALYSIS REFLEX TO MICROSCOPIC NO CULTURE(Performed 04/04/2022) * EKG 12-LEAD(Performed 04/04/2022) Performed for Renal infarct (HCC) * XR CHEST 1VW PORTABLE(Performed 04/04/2022) Performed for Renal infarct (HCC) * TYPE + SCREEN PANEL(Performed 04/04/2022) * TROPONIN I(Performed 04/04/2022) * PTT(Performed 04/04/2022) * PT-INR(Performed 04/04/2022) * COMPREHENSIVE METABOLIC PANEL(Performed 04/04/2022) * CBC W AUTO DIFFERENTIAL(Performed 04/04/2022) Results * VAS ARTERIAL ANKLE ARM INDEX (07/19/2023 1:47 PM INSURANCE APPLICATION INVESTIGATOR) Anatomical Region Laterality Modality Ankle / Foot, Upper Extremity Ul trasound 07/19/2023 1:15 PM INSURANCE APPLICATION INVESTIGATOR Narrative Procedure Note Clinton Dennis MD - 07/20/2023 [facility] [place] [address], [address] [place] [id number] Lower Extremity Arterial Doppler Report Pat.Name: JODY REESE Pat.ID: [id number] .Date: 07/19/2023 Exam Time: 1:15:00 PM Study Type:JOHNNY/PVR Age: 11 1970,53Y Sex: FEMALE Sonogrphr: Lauren Barillas RVT Pat. Stat.:Outpatient CPT - 4: 18475 Reason for Study: PVD Procedures: Ankle Arm Index Race: 1 Visit ID: [id number] ++++++++++++++++++++++++++++++++++++ SUMMARY: ++++++++++++++++++++++++++++++++++++ There is no evidence of arterial insufficiency in either the right or left lower extremity. ++++++++++++++++++++++++++++++++++++ FINDINGS: ++++++++++++++++++++++++++++++++++++ Procedure: The arterial vasculature of the lower extremities was evaluated by analysis of Doppler pressures and waveforms obtained in the legs at rest. Study Quality: This study is of adequate technical quality. JOHNNY: Rt ankle brachial index is 1.26. Left ankle brachial index is 1.28 (normal greater than 0.90). Arterial doppler waveforms of the right JIVE DEVELOPER are triphasic. Arterial doppler waveforms of the right DPA are triphasic. Arterial doppler waveforms of the left JIVE DEVELOPER are triphasic. Arterial doppler waveforms of the left DPA are triphasic. ++++++++++++++++++++++++++++++++++++ MEASUREMENTS: ++++++++++++++++++++++++++++++++++++ PRESSURES Left JOHNNY (DP) JOHNNY (DP) 1.2 Left JOHNNY (PT) JOHNNY (PT) 1.3 Left Ankle DP AnkleDP P 122 mmHg Left Ankle PT AnklePT P 133 mmHg Right JOHNNY (DP) JOHNNY (DP) 1.3 Right JOHNNY (PT) JOHNNY (PT) 1.2 Right Ankle DP AnkleDP P 131 mmHg Right Ankle PT AnklePT P 128 mmHg Right Brachial Brach P 104 mmHg Signed 07/20/2023 11:06 AM Clinton Dennis MD Adelina Mathias BOILERMAKER WELDER-INSURANCE VERIFICATION REPRESENTATIVE VASCULAR LAB ORDE CHON * VAS BILAT ARTERIAL DUPLEX LE (07/19/2023 1:47 PM INSURANCE APPLICATION INVESTIGATOR) Anatomical Region Laterality Modality Lower Extremity Ultrasound 07/19/2023 2:17 PM INSURANCE APPLICATION INVESTIGATOR Narrative Procedure Note Clinton Dennis MD - 07/20/2023 [facility] [place] [facility] [address] [address], [address] [place] [address] Lower Extremity Arterial Ultrasound Report Pat.Name: JODY REESE.ID: [id number] .Date: 07/19/2023 Refer.MD: JACOB WEINER Exam Time: 2:17:00 PM Study Type:LE Arterial Age: 11 1970,53Y Sex: FEMALE Sonogrphr: Lauren Barillas RVT Pat. Stat.:Outpatient CPT - 4: 19442 Reason for Study: PVD Procedures: Lower Extremity Arterial Duplex - Bilateral Race: 1 Visit ID: [id number] ++++++++++++++++++++++++++++++++++++ SUMMARY: ++++++++++++++++++++++++++++++++++++ There is no evidence of arterial insufficiency in either the right or left lower extremity. Patent right superficial femoral artery stent ++++++++++++++++++++++++++++++++++++ FINDINGS: ++++++++++++++++++++++++++++++++++++ Procedure: B-mode imaging, color flow Doppler and spectral analysis were used to examine the arteries of both lower extremities. Study Quality: This study is of adequate technical quality. Rt Leg: Arterial doppler waveforms of the right RN UTILIZATION MANAGEMENT UM, SFA, POP Art, MICHELLE, DPA are triphasic. A stent is present within the right RN UTILIZATION MANAGEMENT UM and is Patent. Rt ankle brachial index is 1.26.(normal greater than 0.90). Lt Leg: Arterial doppler waveforms of the left RN UTILIZATION MANAGEMENT UM, SFA, POP Art, JIVE DEVELOPER, DPA are triphasic throughout. Left Stent was not visualized but all Arteries were Patent with Triphasic flow. Left ankle brachial index is 1.25 (normal greater than 0.90). Doppler Waveforms: Right Left Common Fem Triphasic Triphasic Superficial Fem Triphasic Triphasic Popliteal Triphasic Triphasic ++++++++++++++++++++++++++++++++++++ MEASUREMENTS: ++++++++++++++++++++++++++++++++++++ DOPPLER Right RN UTILIZATION MANAGEMENT UM RN UTILIZATION MANAGEMENT UM Prox PSV 71 cm/s Left RN UTILIZATION MANAGEMENT UM Prox RN UTILIZATION MANAGEMENT UM Prox PSV 80 cm/s Left Iliac Dist Iliac Dist PSV 97 cm/s Left Pop Dist Pop Dist PSV 48 cm/s Left Popliteal Pop Prox PSV 47 cm/s Left Profunda Profunda PSV 48 cm/s Left SFA Dist SFA Dist PSV 71 cm/s Left SFA Mid SFA Mid PSV 75 cm/s Left SFA Prox SFA Prox PSV 83 cm/s Right Iliac Dist Iliac Dist PSV 95 cm/s Right Pop Dist Pop Dist PSV 54 cm/s Right Popliteal Pop Prox PSV 48 cm/s Right Profunda Profunda PSV 43 cm/s Right SFA Dist SFA Dist PSV 65 cm/s Right SFA Mid SFA Mid PSV 81 cm/s Right SFA Prox SFA Prox PSV 88 cm/s Signed 07/20/2023 11:07 AM Clinton Dennis MD Adelina Tidwell Mathias BOILERMAKER WELDER-INSURANCE VERIFICATION REPRESENTATIVE VASCULAR LAB ORDE CHON * VAS RIGHT ARTERIAL DUPLEX LE (05/01/2022 9:03 AM INSURANCE APPLICATION INVESTIGATOR) Anatomical Region Laterality Modality Lower Extremity Intravascular Ul trasound 05/01/2022 8:58 AM INSURANCE APPLICATION INVESTIGATOR Narrative Procedure Note Shaista Larson DO - 05/01/2022 [facility] [address] [place] [address] Lower Extremity Arterial Ultrasound Report Pat.Name: JODY REESE Pat.ID: [id number] .Date: 05/01/2022 Refer.MD: Michelle Madrigal Exam Time: 8:58:00 AM Study Type:LE Arterial Age: 11 1970,52Y Sex: FEMALE Sonogrphr: Marcel Kim RVT, ONI Pat. Stat.:Outpatient CPT - 4: 54308 Reason for Study: Follow up surgery Procedures: Lower Extremity Arterial Duplex - Right Race: 1 Visit ID: [id number] ++++++++++++++++++++++++++++++++++++ SUMMARY: ++++++++++++++++++++++++++++++++++++ Right RN UTILIZATION MANAGEMENT UM stent is widely patent. No evidence of pseudoaneurysm. non vascular soft tissue mass in right groin likely a hematoma with size as mentioned above. ++++++++++++++++++++++++++++++++++++ FINDINGS: ++++++++++++++++++++++++++++++++++++ Procedure: B-mode imaging, color flow Doppler and spectral analysis were used to examine the arteries of the right lower extremity. Study Quality: This study is of adequate technical quality. Rt Leg: Incidental finding of a nonvascular soft tissue mass within the right groin that measures 3.43 cm x 1.31 cm. Doppler Waveforms: Right Left Common Fem Triphasic Superficial Fem Triphasic ++++++++++++++++++++++++++++++++++++ MEASUREMENTS: ++++++++++++++++++++++++++++++++++++ DOPPLER Right RN UTILIZATION MANAGEMENT UM Prox RN UTILIZATION MANAGEMENT UM Prox PSV 135 cm/s Right RN UTILIZATION MANAGEMENT UM Dist RN UTILIZATION MANAGEMENT UM Dist PSV 100 cm/s Right SFA Origin SFA Origin PSV 82 cm/s Signed 05/01/2022 03:33 PM Shaista Larson MD Michelle Madrigal BOILERMAKER WELDER-INSURANCE VERIFICATION REPRESENTATIVE VASCULAR LAB O RDERABLES * (ABNORMAL) CBC W AUTO DIFFERENTIAL (04/19/2022 5:04 AM INSURANCE APPLICATION INVESTIGATOR) Only the most recent of6 resultswithin the time period is included. WBC 9.9 4.4 - 10.7 x10E9/L 04/19/2022 7:20 AM INSURANCE APPLICATION INVESTIGATOR [facility] WBC Corrected 04/19/2022 7:20 AM INSURANCE APPLICATION INVESTIGATOR [facility] RBC 3.35(L) 3.80 - 5.20 x10E12/L 04/19/2022 7:20 AM INSURANCE APPLICATION INVESTIGATOR [facility] Hemoglobin 10.3(L) 12.0 - 15.6 gm/dL 04/19/2022 7:20 AM [facility] Hematocrit 31.5(L) 35.9 - 45.5 % 04/19/2022 7:20 AM [facility] MCV 94.0 80.7 - 98.3 fl 04/19/2022 7:20 AM [facility] MCH 30.7 26.7 - 34.0 pg 04/19/2022 7:20 AM [facility] MCHC 32.7 30.8 - 35.9 gm/dL 04/19/2022 7:20 AM [facility] Platelet Count 373 153 - 416 x10E9/L 04/19/2022 7:20 AM [facility] RDW-CV 13.2 12.1 - 14.9 % 04/19/2022 7:20 AM [facility] MPV 9.1(L) 9.4 - 12.9 fl 04/19/2022 7:20 AM [facility] Neutrophils % 92.7(H) 44.0 - 73.0 % 04/19/2022 7:20 AM [facility] Lymphocytes % 5.7(L) 20.0 - 43.0 % 04/19/2022 7:20 AM [facility] Monocytes % 1.0(L) 5.0 - 13.0 % 04/19/2022 7:20 AM [facility] Eosinophils % 0.0 0.0 - 6.0 % 04/19/2022 7:20 AM [facility] Basophils % 0.3 0.0 - 2.0 % 04/19/2022 7:20 AM [facility] Immature Granulocytes 0.3 0 - 1 % 04/19/2022 7:20 AM [facility] Neutrophil Absolute 9.14(H) 2.01 - 7.14 x10E9/L 04/19/2022 7:20 AM [facility] Lymphocytes Absolute 0.56(L) 1.07 - 3.94 x10E9/L 04/19/2022 7:20 AM [facility] Monocytes Absolute 0.10(L) 0.26 - 1.07 x10E9/L 04/19/2022 7:20 AM [facility] Eosinophils Absolute 0.00 0 - 0.47 x10E9/L 04/19/2022 7:20 AM [facility] Basophils Absolute 0.03 0 - 0.08 x10E9/L 04/19/2022 7:20 AM [facility] Immature Granulocytes Absolute 0.03 0.00 - 0.06 x10E9/L 04/19/2022 7:20 AM [facility] nRBC Auto 0 /100 WBC 04/19/2022 7:20 AM [facility] Blood BLOOD SPECIMEN / Unknown Venipuncture / Unknown 04/19/2022 5:04 AM INSURANCE APPLICATION INVESTIGATOR 04/19/2022 5:40 AM [facility] René Moreno Datar LAB - HEMATOLOGY ORD ERABLES [facility] [address] [place] [address] * (ABNORMAL) RENAL FUNCTION PANEL (04/19/2022 5:04 AM [facility]) Pathologist [facility] Glucose 99 70 - 105 mg/dL 04/19/2022 7:15 AM [facility] Sodium 138 136 - 145 mmol/L 04/19/2022 7:15 AM [facility] Potassium 3.7 3.5 - 5.1 mmol/L 04/19/2022 7:15 AM [facility] Chloride 104 98 - 107 mmol/L 04/19/2022 7:15 AM [facility] CO2 25 23 - 31 mmol/L 04/19/2022 7:15 AM [facility] Calcium 8.8 8.4 - 10.4 mg/dL 04/19/2022 7:15 AM [facility] Anion Gap 9 8 - 18 mmol/L 04/19/2022 7:15 AM [facility] BUN 12 9.8 - 20.1 mg/dL 04/19/2022 7:15 AM [facility] Creatinine 0.70 0.57 - 1.11 mg/dL 04/19/2022 7:15 AM [facility] Albumin 3.0(L) 3.5 - 5.2 gm/dL 04/19/2022 7:15 AM [facility] Phosphorus 3.8 2.3 - 4.7 mg/dL 04/19/2022 7:15 AM INSURANCE APPLICATION INVESTIGATOR [facility] eGFR by CKD-EPI >90 >=90 mL/min/1.7 3 m2 04/19/2022 7:15 AM INSURANCE APPLICATION INVESTIGATOR [facility] Blood BLOOD SPECIMEN / Unknown Venipuncture / Unknown 04/19/2022 5:04 AM INSURANCE APPLICATION INVESTIGATOR 04/19/2022 5:40 AM INSURANCE APPLICATION INVESTIGATOR René Kim MD LAB - CHEMISTRY YANIQUE GIVENS Performing Organization Address [facility] [address] [facility] de Phone Number [facility] [address] [place] [address] * HYBRID IMAGING (04/18/2022 8:45 PM INSURANCE APPLICATION INVESTIGATOR) Only the most recent of2 resultswithin the time period is included. Narrative [facility] - 04/20/2022 9:21 AM INSURANCE APPLICATION INVESTIGATOR Please see the progress note. Donal Patel MD CARDIAC ALUMINIZER RAD IANT Performing Organization Address [facility] [address]/[facility] de Phone Number [facility] [address] [place] [address] * ETT LINE PERFORMABLE (04/18/2022 8:10 PM INSURANCE APPLICATION INVESTIGATOR) Narrative Adrienne Foley MD - 04/18/2022 8:10 PM INSURANCE APPLICATION INVESTIGATOR Adrienne Foley MD 04/18/2022 8:30 PM Endotracheal Tube Placement: Patient Location: OR. Intubation Event Date/Time: 04/18/2022 8:10 PM Procedure: intubation ([id number]). Procedure Section: Sedation: under general anesthesia. Indications for Airway Management: anesthesia Induction: standard IV Patient Position: sniffing Mask Ventilation: easy. Blade Type: Edwardo Blade Size: 3 Laryngoscopy View: grade 1 (full cords) Intubation Adjuncts: cricoid pressure Tube: endotracheal tube Placement: oral Tube type: cuff - inflated Tube Size (MM): 6 Depth of Insertion (CM): 21 Measured From: teeth Cuff Inflated With: air Number of Attempts: 1. Placement Verified By: direct visualization and CO2 monitor Tube secured with: adhesive tape. Dentition unchanged? Yes Difficult Airway? No. Procedure Start Time: 04/18/2022 8:10 PM. Staff Section Anesthesia Provider: Adrienne Foley MD, Performed the procedure Additional Comments: Attempted to place size 3 I-gel LMA after induction with lidocaine and propofol but unable to get I-gel to pass easily into hypopharynx in spite of lubricating the device with sterile gel and using a popsicle stick. Getting hung up somewhere in back of mouth and concern that excessive force to advance the airway device would traumatize the airway. So decision made to intubate the trachea. Size 6.0 ETT selected because patient very small and less than 50 kg. . Adrienne Foley MD GENERAL ANESTHESIA O RDERABLES * TYPE + SCREEN PANEL (04/18/2022 2:04 PM INSURANCE APPLICATION INVESTIGATOR) Only the most recent of2 resultswithin the time period is included. ABO Rh B POS 04/18/2022 3:39 PM INSURANCE APPLICATION INVESTIGATOR [facility] Comment:History checked. Antibody Screen NEG 3:39 PM INSURANCE APPLICATION INVESTIGATOR [facility] Blood Bank BLOOD SPECIMEN / Unknown Venipuncture / Unknown 04/18/2022 2:04 PM INSURANCE APPLICATION INVESTIGATOR 04/18/2022 2:10 PM INSURANCE APPLICATION INVESTIGATOR Ariel Patterson MD LAB - BLOOD BANK ORD ERABLES [facility] [address] [phone] * (ABNORMAL) PT-INR (04/18/2022 2:04 PM INSURANCE APPLICATION INVESTIGATOR) Only the most recent of4 resultswithin the time period is included. PT 15.1(H) 12.1 - 14.8 sec 04/18/2022 2:25 PM INSURANCE APPLICATION INVESTIGATOR [facility] INR 1.2(H) 0.9 - 1.1 04/18/2022 2:25 PM INSURANCE APPLICATION INVESTIGATOR [facility] Blood BLOOD SPECIMEN / Unknown Venipuncture / Unknown 04/18/2022 2:04 PM INSURANCE APPLICATION INVESTIGATOR 04/18/2022 2:10 PM INSURANCE APPLICATION INVESTIGATOR Narrative [facility] - 04/18/2022 2:25 PM INSURANCE APPLICATION INVESTIGATOR Conventional Warfarin Anticoagulant Therapy: INR Reference Range: 2.0-3.0 Intensive Warfarin Anticoagulant Therapy: INR Reference Range: 2.5-3.5 Ariel Patterson MD LAB - COAGULATION OR DERABLES [facility] [address] [place] [address] * (ABNORMAL) COMPREHENSIVE METABOLIC PANEL (04/18/2022 2:04 PM INSURANCE APPLICATION INVESTIGATOR) Only the most recent of2 resultswithin the time period is included. Pathologist [facility] Glucose 74 70 - 105 mg/dL 04/18/2022 2:33 PM [facility] Sodium 138 136 - 145 mmol/L 04/18/2022 2:33 PM [facility] Potassium 3.8 3.5 - 5.1 mmol/L 04/18/2022 2:33 PM [facility] Chloride 106 98 - 107 mmol/L 04/18/2022 2:33 PM [facility] CO2 24 23 - 31 mmol/L 04/18/2022 2:33 PM [facility] Calcium 8.6 8.4 - 10.4 mg/dL 04/18/2022 2:33 PM [facility] Anion Gap 8 8 - 18 mmol/L 04/18/2022 2:33 PM [facility] BUN 8(L) 9.8 - 20.1 mg/dL 04/18/2022 2:33 PM [facility] Creatinine 0.69 0.57 - 1.11 mg/dL 04/18/2022 2:33 PM [facility] Alkaline Phosphatase 100 40 - 150 U/L 04/18/2022 2:33 PM [facility] ALT 13 0 - 61 U/L 04/18/2022 2:33 PM [facility] AST 22 5 - 34 U/L 04/18/2022 2:33 PM [facility] Protein Total 6.3(L) 6.4 - 8.3 gm/dL 04/18/2022 2:33 PM [facility] Albumin 3.2(L) 3.5 - 5.2 gm/dL 04/18/2022 2:33 PM [facility] Bilirubin Total 0.7 0.2 - 1.2 mg/dL 04/18/2022 2:33 PM INSURANCE APPLICATION INVESTIGATOR [facility] eGFR by CKD-EPI >90 >=90 mL/min/1.7 3 m2 04/18/2022 2:33 PM INSURANCE APPLICATION INVESTIGATOR [facility] Blood BLOOD SPECIMEN / Unknown Venipuncture / Unknown 04/18/2022 2:04 PM INSURANCE APPLICATION INVESTIGATOR 04/18/2022 2:10 PM INSURANCE APPLICATION INVESTIGATOR Ariel Patterson MD LAB - CHEMISTRY YANIQUE GIVENS Performing Organization Address [facility] [address]/[facility] Co de Phone Number [facility] [address] [place] [address] * HCG BLOOD QUALITATIVE (04/18/2022 2:04 PM INSURANCE APPLICATION INVESTIGATOR) HCG Qual Serum Negative Negative 04/18/2022 2:30 PM INSURANCE APPLICATION INVESTIGATOR [facility] Blood BLOOD SPECIMEN / Unknown Venipuncture / Unknown 04/18/2022 2:04 PM INSURANCE APPLICATION INVESTIGATOR 04/18/2022 2:10 PM INSURANCE APPLICATION INVESTIGATOR Ariel Patterson MD LAB - CHEMISTRY YANIQUE GIVENS Performing Organization Address [facility] [address]/[facility] de Phone Number [facility] [address] [place] [address] * CARDIAC EKG ORDER (04/13/2022 3:59 AM INSURANCE APPLICATION INVESTIGATOR) Narrative 04/13/2022 3:59 AM INSURANCE APPLICATION INVESTIGATOR Ordered by an unspecified provider. Scanned Document CARDIAC SERVICES ORD ERABLES * (ABNORMAL) BASIC METABOLIC PANEL (CALCIUM TOTAL) (04/07/2022 4:35 AM INSURANCE APPLICATION INVESTIGATOR) Only the most recent of3 resultswithin the time period is included. Glucose 89 70 - 105 mg/dL 04/07/2022 5:14 AM INSURANCE APPLICATION INVESTIGATOR [facility] Sodium 137 136 - 145 mmol/L 04/07/2022 5:14 AM INSURANCE APPLICATION INVESTIGATOR [facility] Potassium 3.9 3.5 - 5.1 mmol/L 04/07/2022 5:14 AM INSURANCE APPLICATION INVESTIGATOR [facility] Chloride 106 98 - 107 mmol/L 04/07/2022 5:14 AM INSURANCE APPLICATION INVESTIGATOR [facility] CO2 27 23 - 31 mmol/L 04/07/2022 5:14 AM INSURANCE APPLICATION INVESTIGATOR [facility] Calcium 8.7 8.4 - 10.4 mg/dL 04/07/2022 5:14 AM [facility] Anion Gap 4(L) 8 - 18 mmol/L 04/07/2022 5:14 AM [facility] BUN 9(L) 9.8 - 20.1 mg/dL 04/07/2022 5:14 AM INSURANCE APPLICATION INVESTIGATOR [facility] Creatinine 0.68 0.57 - 1.11 mg/dL 04/07/2022 5:14 AM [facility] eGFR by CKD-EPI >90 >=90 mL/min/1.7 3 m2 04/07/2022 5:14 AM INSURANCE APPLICATION INVESTIGATOR [facility] Blood BLOOD SPECIMEN / Unknown Venipuncture / Unknown 04/07/2022 4:35 AM INSURANCE APPLICATION INVESTIGATOR 04/07/2022 4:46 AM INSURANCE APPLICATION INVESTIGATOR Garry Lara MD LAB - CHEMISTR Y ORDERABLES Performing Organization Address [facility] [address]/[facility] de Phone Number [facility] [id number] [place] [address] * (ABNORMAL) PTT (04/06/2022 4:05 AM INSURANCE APPLICATION INVESTIGATOR) Only the most recent of6 resultswithin the time period is included. PTT 41.6(H) 23.0 - 38.4 sec 04/06/2022 4:35 AM INSURANCE APPLICATION INVESTIGATOR [facility] [facility] Blood BLOOD SPECIMEN / Unknown Venipuncture / Unknown 04/06/2022 4:05 AM INSURANCE APPLICATION INVESTIGATOR 04/06/2022 4:09 AM INSURANCE APPLICATION INVESTIGATOR Narrative [facility] - 04/06/2022 4:35 AM INSURANCE APPLICATION INVESTIGATOR Heparin Therapeutic Range for PTT: 69.0 - 110.0 seconds. Roland Johnson MD LAB - COAGULATION OR DERABLES Performing Organization Address [facility] [address]/[facility] Co de Phone Number [facility] [address] [place] [address] * CT ABDOMEN PELVIS WO CONTRAST (04/05/2022 2:09 AM INSURANCE APPLICATION INVESTIGATOR) Anatomical Region Laterality Modality Abdomen, Pelvis Computed Tomogra phy 04/05/2022 8:11 AM INSURANCE APPLICATION INVESTIGATOR Impressions 04/05/2022 8:39 AM INSURANCE APPLICATION INVESTIGATOR IMPRESSION: Nonobstructing bilateral renal calculi. Constipation. Preliminary interpretation was provided by [facility]. Edited by Sarah Valdes on 04/05/2022 8:38 AM > Interpreting Provider: Juan David DO on 04/05/2022 8:39 AM Narrative 04/05/2022 8:39 AM INSURANCE APPLICATION INVESTIGATOR CT ABDOMEN AND PELVIS WITHOUT CONTRAST CLINICAL INDICATION: Abdominal pain. History of renal infarct. TECHNIQUE: Axial CT images from the lung bases through the pubic symphysis were obtained without intravenous contrast. Radiation dose reduction technique was utilized. There is significant ring artifact noted on today's exam from CT scanner malfunction. FINDINGS: The imaged heart chambers are normal appearing. Minimal bibasilar atelectasis is noted. The liver appears grossly normal. The gallbladder, spleen, pancreas and adrenal glands are normal appearing. There are several small hyperdense renal cysts and nonobstructing bilateral renal calculi noted. The ureters and bladder appear normal. A moderate amount of stool is seen throughout the colon suggesting constipation. The abdominal vasculature is normal. No free fluid, free air or abnormal lymph nodes are noted. The abdominal wall is intact. Mild degenerative changes are seen in the spine. Procedure Note Juan David DO - 04/05/2022 CT ABDOMEN AND PELVIS WITHOUT CONTRAST CLINICAL INDICATION: Abdominal pain. History of renal infarct. TECHNIQUE: Axial CT images from the lung bases through the pubicsymphysis were obtained without intravenous contrast. Radiation dose reduction technique was utilized. There is significant ring artifact noted ontoday's exam from CT scanner malfunction. FINDINGS: The imaged heart chambers are normal appearing. Minimal bibasilar atelectasis is noted. The liver appears grossly normal. The gallbladder, spleen, pancreas and adrenal glands are normal appearing. There areseveral small hyperdense renal cysts and nonobstructing bilateral renal calculi noted. The ureters and bladder appear normal. A moderate amount of stoolis seen throughout the colon suggesting constipation. The abdominal vasculature is normal. No free fluid, free air or abnormal lymph nodesare noted. The abdominal wall is intact. Mild degenerative changes are seenin the spine. IMPRESSION: Nonobstructing bilateral renal calculi. Constipation. Preliminary interpretation was provided by [facility]. Edited by Sarah Valdes on 04/05/2022 8:38 AM > Interpreting Provider: Juan David DO on 04/05/2022 8:39 AM Yehuda Ferguson MD CT ORDERABLES * TROPONIN I (04/04/2022 11:34 PM INSURANCE APPLICATION INVESTIGATOR) Only the most recent of2 resultswithin the time period is included. Troponin I <0.010 <0.038 ng/mL 04/04/2022 11:57 PM INSURANCE APPLICATION INVESTIGATOR [facility] Blood BLOOD SPECIMEN / Unknown Venipuncture / Unknown 04/04/2022 11:34 PM INSURANCE APPLICATION INVESTIGATOR 04/04/2022 11:36 PM INSURANCE APPLICATION INVESTIGATOR Mallory Henning PA-C LAB - CHEMISTRY ORDERABLES [facility] [address] [place] [address] * (ABNORMAL) URINALYSIS REFLEX TO MICROSCOPIC NO CULTURE (04/04/2022 9:34 PM INSURANCE APPLICATION INVESTIGATOR) Color UA Adelina(A) Straw, Yellow 04/04/2022 9:41 PM INSURANCE APPLICATION INVESTIGATOR [facility] Clarity UA Cloudy(A) Clear 04/04/2022 9:41 PM INSURANCE APPLICATION INVESTIGATOR [facility] Glucose UA Negative Negative 04/04/2022 9:41 PM INSURANCE APPLICATION INVESTIGATOR [facility] Bilirubin UA Negative Negative 04/04/2022 9:41 PM INSURANCE APPLICATION INVESTIGATOR [facility] Ketone UA Trace(A) Negative 04/04/2022 9:41 PM INSURANCE APPLICATION INVESTIGATOR [facility] Specific [place] UA 1.020 1.005 - 1.030 04/04/2022 9:41 PM INSURANCE APPLICATION INVESTIGATOR [facility] Blood UA 1+(A) Negative 04/04/2022 9:41 PM INSURANCE APPLICATION INVESTIGATOR [facility] pH UA 5.0 5.0 - 8.0 pH 04/04/2022 9:41 PM INSURANCE APPLICATION INVESTIGATOR [facility] Protein UA 1+(A) Negative 04/04/2022 9:41 PM INSURANCE APPLICATION INVESTIGATOR [facility] Urobilinogen UA 4.0(A) Negative mg/dL 04/04/2022 9:41 PM INSURANCE APPLICATION INVESTIGATOR [facility] Nitrite UA Positive(A) Negative 04/04/2022 9:41 PM INSURANCE APPLICATION INVESTIGATOR [facility] Leukocyte UA 2+(A) Negative 04/04/2022 9:41 PM INSURANCE APPLICATION INVESTIGATOR [facility] Urine Microscopy Urine microscopy to follow 04/04/2022 9:41 PM INSURANCE APPLICATION INVESTIGATOR [facility] Urine URINE SPECIMEN OBTAINED BY CLEAN CATCH PROCEDURE / Unknown Collection / Unknown 04/04/2022 9:34 PM INSURANCE APPLICATION INVESTIGATOR 04/04/2022 9:35 PM INSURANCE APPLICATION INVESTIGATOR Narrative [facility] - 04/04/2022 9:41 PM INSURANCE APPLICATION INVESTIGATOR Mallory Henning PA-C LAB - URINALYSIS ORDERABLES Performing Organization Address City/[facility] [address]/ZIP Co de Phone Number [facility] [id number] [place] [id number] * (ABNORMAL) URINE MICROSCOPIC ONLY (04/04/2022 9:34 PM INSURANCE APPLICATION INVESTIGATOR) RBC UA 0-2 0 - 5 # /hpf 04/04/2022 9:45 PM INSURANCE APPLICATION INVESTIGATOR [facility] WBC UA 21-50(A) 0 - 5 # /hpf 04/04/2022 9:45 PM INSURANCE APPLICATION INVESTIGATOR [facility] Bacteria UA 3+(A) None Seen 04/04/2022 9:45 PM INSURANCE APPLICATION INVESTIGATOR [facility] Squamous Epithelial Cells 6-10(A) 0 - 5 /hpf 04/04/2022 9:45 PM INSURANCE APPLICATION INVESTIGATOR [facility] Mucus UA 4+ /LPF 04/04/2022 9:45 PM INSURANCE APPLICATION INVESTIGATOR [facility] Urine URINE SPECIMEN OBTAINED BY CLEAN CATCH PROCEDURE / Unknown Collection / Unknown 04/04/2022 9:34 PM INSURANCE APPLICATION INVESTIGATOR 04/04/2022 9:35 PM INSURANCE APPLICATION INVESTIGATOR Narrative [facility] - 04/04/2022 9:45 PM INSURANCE APPLICATION INVESTIGATOR Mallory Henning PA-C LAB - URINALYSIS ORDERABLES Performing Organization Address [facility] [address]/[facility] de Phone Number [facility] [address] [place] [address] * EKG 12-LEAD (04/04/2022 9:25 PM INSURANCE APPLICATION INVESTIGATOR) Ventricular Rate 75 BPM [facility] Atrial Rate 75 BPM [facility] P-R Interval 130 ms [facility] QRS Duration ms 80 ms [facility] Q-T Interval ms 408 ms [facility] QTC Calculation (Bezet) 455 ms [facility] Calculated P [place] 66 degrees [facility] Calculated R [place] 49 degrees [facility] Calculated T [place] 80 degrees [facility] Interpretation EKG Normal sinus rhythm Nonspecific ST and T wave abnormality Abnormal ECG No previous ECGs available Confirmed by RILEY MAURO MD ([id number]) on 04/05/2022 8:23:46 PM [facility] 04/04/2022 9:25 PM INSURANCE APPLICATION INVESTIGATOR 04/05/2022 8:23 PM INSURANCE APPLICATION INVESTIGATOR Mallory Tidwell Milady NGUYEN ECG ORDERABLES [facility] * XR CHEST 1VW PORTABLE (04/04/2022 9:18 PM INSURANCE APPLICATION INVESTIGATOR) Anatomical Region Laterality Modality Chest Radiographic Saritha ging 04/05/2022 8:43 AM INSURANCE APPLICATION INVESTIGATOR Impressions 04/05/2022 8:43 AM INSURANCE APPLICATION INVESTIGATOR IMPRESSION: Hyperinflated lung parks. > Interpreting Provider: Juan Peralta MD on 04/05/2022 8:43 AM Narrative 04/05/2022 8:43 AM INSURANCE APPLICATION INVESTIGATOR PROCEDURE: XR CHEST 1VW PORTABLE, DATE/TIME OF EXAM: 04/04/2022 9:19 PM, LOCATION [facility] INDICATION: Shortness of breath ADDITIONAL CLINICAL INFORMATION: Ordering Provider Reason For Exam: Technologist Note: Additional: COMPARISON: None. FINDINGS: The lung parks are hyperinflated. There is no consolidation, pleural effusion or pneumothorax. The heart size is normal. Procedure Note Juan Peralta MD - 04/05/2022 PROCEDURE: XR CHEST 1VW PORTABLE, DATE/TIME OF EXAM: 04/04/2022 9:19PM, LOCATION [facility] INDICATION: Shortness of breath ADDITIONAL CLINICAL INFORMATION: Ordering Provider Reason For Exam: Technologist Note: Additional: COMPARISON: None. FINDINGS: The lung parks are hyperinflated. There is no consolidation, pleural effusion or pneumothorax. The heart size is normal. IMPRESSION: Hyperinflated lung parks. > Interpreting Provider: Juan Peralta MD on 04/05/2022 8:43 AM Mallory Henning PA-C DIAGNOSTIC IMAGI NG ORDERABLES Care Teams Note Taker Relationship Specialty Start Date End Date Edwina Bertrand MD [address] [place] [id number] PCP - General Obstetrics and Gynecology 04/04/22
--- OUTSIDE RECORDS SUMMARY | 2024-06-29 09:11 | XMS_ITS ---
Author Organization [facility] Address [address] [place] [address] Phone Care Team Providers Care Assistant Prosecuting Attorney Name Role Phone Wil Bertrand MD Primary Care Provider OnCall Chronic Condition Monitoring Status:Enrolled (Active) Start date:06/05/2024 Enrollment date:06/05/2024 Related social drivers of health:Social Connections, Tobacco Use, Physical Activity, Housing Stability Continued Care and Services Coordination
[2024-06-29 09:15] VITALS: BP 103/80; PULSE 103; RESP 16; TEMP 36.8; O2SAT 100
--- NOTE | 2024-06-29 10:02 | ED.GENADULT ---
HPI - General Adult General Chief complaint: Ear Stated complaint: Right Ear Pain Source: patient Mode of arrival: ambulatory Limitations: no limitations History of Present Illness HPI narrative: Patient presents for evaluation of right-sided ear pain. Symptom onset 3 days ago. She has decreased hearing on the right and green/blood drainage from the ear. She denies any fever, chills, sore throat, cough, SOB, nausea, vomiting or diarrhea. No recent sick contacts to her knowledge. She smokes 1/3 ppd. She is not taking any medications to assist with her symptoms. Related Data Home Medications ?Medication ?Instructions ?Recorded ?Confirmed ?Last Taken ?Type amitriptyline 25 mg tablet mg 03/03/23 Unknown History apixaban 5 mg tablet (Eliquis) mg 03/03/23 Unknown History lisinopril 10 mg tablet mg 03/03/23 Unknown History sumatriptan succinate 50 mg tablet mg PO 06/29/24 Unknown History Allergies Allergy/AdvReac Type Severity Reaction Status Date / Time egg Allergy Severe Anaphylaxis Verified 06/29/24 09:35 Penicillins Allergy Severe Dyspnea / Verified 06/29/24 09:35 SOB flu vaccination Allergy Severe Anaphylaxis Uncoded 06/29/24 09:35 MMR vaccination Allergy Severe Anaphylaxis Uncoded 06/29/24 09:35 Review of Systems Review of Systems: CONSTITUTIONAL: Denies fever, chills, or sweats. EYES: Denies visual changes, redness, or discharge. ENT: Reports right ear pain, decreased hearing and thick green/bloody drainage from the ear. CARDIOVASCULAR: Denies chest pain, palpitations, or edema. RESPIRATORY: Denies cough or dyspnea. GASTROINTESTINAL: Denies abdominal pain, nausea, vomiting, or diarrhea. GENITOURINARY: Denies dysuria or hematuria. SKIN: Denies rash or itching. MUSCULOSKELETAL: Denies back pain, joint pain, or myalgia. NEUROLOGIC: Denies headache, numbness, dizziness, or weakness. PSYCHIATRIC: Denies anxiety or depression. [facility] Past Medical History Medical History Multiple environmental allergies Gestational diabetes Hypertension Surgical History Surgical History History of placement of ear tubes Family History Family History Mother Asthma Father Lung cancer COPD (chronic obstructive pulmonary disease) Social History Social History Smoking packs per day: 0.25 Smoking cigarettes per day: 5.0 Years smoked: 16 Smoking pack-years: 4.00 Smoking status: Current every day smoker Alcohol intake: current Alcohol use details: social Substance use type: does not use Living arrangements: with family Gender identity (if verbalized by the patient): Female Exam Narrative: GENERAL: Well-appearing, well-nourished, and in no acute distress. HEAD: Normocephalic, atraumatic. EYES: PERRLA and EOMI. ENT: Nares clear, no rhinorrhea or epistaxis. Mucous membranes moist. Oropharynx without tonsillar hypertrophy exudate or other lesions. Right TM is erythematous. There is some crusted drainage noted on right TM NECK: Supple. No adenopathy or masses. No carotid bruits or JVD CHEST: Clear to auscultation. No respiratory distress. No wheezes rales or rhonchi HEART: Regular rate and rhythm. No murmur heard. Normal peripheral pulses. ABDOMEN: Soft, nontender, nondistended, normal active bowel sounds. EXTREMITIES: Normal range of motion. No edema. SKIN: Warm, dry, no rash. NEURO: No focal deficits. Alert and oriented x3. PSYCH: Normal mood and affect. Course Course Emergency Course: This is a 54-year-old female who presented for evaluation of right-sided ear pain. She has evidence of otitis media on exam. While I cannot visualize a perforation in the TM, I do not have full visualization of the TM. I suspect the TM is ruptured. Will dc with augmentin and ofloxacin. Increase hydration. OTC agents for symptom management. Instructed on smoking cessation. Follow up with primary provider. Go to the ER for worsening symptoms. Pt in agreement with plan of care. Level of Care: Express Care Visit Vital Signs Vital signs: Vital Signs Temperature 36.8 C 06/29/24 09:15 Pulse Rate 103 H 06/29/24 09:15 Respiratory Rate 16 06/29/24 09:15 Blood Pressure 103/80 06/29/24 09:15 Pulse Oximetry 100 06/29/24 09:15 Oxygen Delivery Room Air 06/29/24 09:15 Temperature 36.8 C 06/29/24 09:15 Pulse Rate 103 H 06/29/24 09:15 Respiratory Rate 16 06/29/24 09:15 Blood Pressure 103/80 06/29/24 09:15 Pulse Oximetry 100 06/29/24 09:15 Oxygen Delivery Room Air 06/29/24 09:15 Medical Decision Making Vital Signs Vital Signs: Vital Signs Temperature 36.8 C 06/29/24 09:15 Pulse Rate 103 H 06/29/24 09:15 Respiratory Rate 16 06/29/24 09:15 Blood Pressure 103/80 06/29/24 09:15 Pulse Oximetry 100 06/29/24 09:15 Oxygen Delivery Room Air 06/29/24 09:15 Temperature 36.8 C 06/29/24 09:15 Pulse Rate 103 H 06/29/24 09:15 Respiratory Rate 16 06/29/24 09:15 Blood Pressure 103/80 06/29/24 09:15 Pulse Oximetry 100 06/29/24 09:15 Oxygen Delivery Room Air 06/29/24 09:15 Discharge Plan Discharge Clinical Impression: Otitis media Patient Disposition: Home, Self-Care Condition: Stable Instructions: Antibiotic Form, Ear Infection (ED) Patient Language: Telugu Prescriptions: New cefdinir 300 mg capsule 300 mg PO Q12H Qty: 20 0RF ofloxacin 0.3 % drops 10 drp RIGHT EAR DAILY 7 Days Qty: 5 0RF No Action amitriptyline 25 mg tablet lisinopril 10 mg tablet Eliquis 5 mg tablet sumatriptan succinate 50 mg tablet PO Follow-up/Referrals: Jerzy,Wil Jones MD [Primary Care Provider] - Stand Alone Forms: Work/School Release IP Time of Disposition: 09:56
== END 2024-06-29 10:00 | disposition home or self-care (01) ==
PROVIDERS: Emergency Provider Nurse Practitioner; PCP Internal Medicine
DX: H66.91 Otitis media, unspecified, right ear (principal); F17.210 Nicotine dependence, cigarettes, uncomplicated; I10 Essential (primary) hypertension
CPT/HCPCS: 99213; G0463